=== PATIENT | female | born 1965 | race Two or more races ===

== ENCOUNTER 2024-08-01 07:07 | Outpatient (CLI) | payer OTHER | END 2024-08-01 07:13 | disposition home or self-care (01) | LOC: SONOGRAMA 07:07 | DX: K21.9 Gastro-esophageal reflux disease without esophagitis (principal); K57.30 Diverticulosis of large intestine without perforation or abscess without bleeding; R10.11 Right upper quadrant pain; R14.3 Flatulence ==

== ENCOUNTER 2024-09-09 13:54 | Outpatient (CLI) | payer OTHER | END 2024-09-09 13:57 | disposition home or self-care (01) | LOC: SONOGRAMA 13:54 | DX: N28.1 Cyst of kidney, acquired (principal) ==